=== PATIENT | male | born 1955 | race Two or more races ===

== ENCOUNTER 2018-06-08 20:17 | Emergency (ER) | payer MEDICARE, OTHER ==
[~2018-06-08] VITALS: Ht 188 cm; Wt 100.7 kg
[2018-06-08] MEDS ORDERED: ALBUTEROL FS 2.5 MG/3 ML VIAL.NEB NEB ONE (21:30)
[2018-06-08] MEDS ORDERED: IPRATROPIUM NEB FS 0.5 MG/2.5 ML AMPUL.NEB NEB ONE (21:30)
[2018-06-08] MEDS ORDERED: IPRATROPIUM NEB FS 0.5 MG/2.5 ML AMPUL.NEB ONE (21:48)
[2018-06-08] MEDS ORDERED: ALBUTEROL FS 2.5 MG/3 ML VIAL.NEB ONE (21:48)
--- NOTE | 2018-06-08 22:25 | NUR ---
ASSUMED CARE OF PT FOR D/C PURPOSES ONLY.
--- NOTE | 2018-06-08 22:26 | NUR ---
IV removed. Catheter intact and site benign. Pressure and 4x4 applied to site. No bleeding noted. Patient discharged to home in stable condition. Written and verbal after care instructions given. Patient verbalizes understanding of instruction AND RX. PT AMBULATED TO THE NURSES' STATIONWITH A STEADY GAIT TO CALL UBER. VSS.
[2018-06-08 22:27] VITALS: BP 95/60
== END 2018-06-08 22:27 | disposition home or self-care (01) ==
LOC: ER 20:21
DX: J98.01 Acute bronchospasm (principal); I10 Essential (primary) hypertension; F12.10 Cannabis abuse, uncomplicated; E78.00 Pure hypercholesterolemia, unspecified; E11.9 Type 2 diabetes mellitus without complications; Z95.5 Presence of coronary angioplasty implant and graft
CPT/HCPCS: 94640; 99283; A4606